=== PATIENT | female | born 1965 | race Caucasian/White ===

== ENCOUNTER → 2016-08-30 | Outpatient (CLI) | payer OTHER | END | disposition home or self-care (01) | LOC: PTH.S 15:56 | DX: E03.9 Hypothyroidism, unspecified (principal); B19.20 Unspecified viral hepatitis C without hepatic coma ==

== ENCOUNTER → 2016-12-11 | Outpatient (CLI) | payer OTHER | END | disposition home or self-care (01) | LOC: RAD.S 12-05 08:00 | DX: R19.01 Right upper quadrant abdominal swelling, mass and lump (principal); B19.20 Unspecified viral hepatitis C without hepatic coma; K76.89 Other specified diseases of liver ==